=== PATIENT | male | born 1955 | race Native Hawaiian/Other Pacific Islander ===

== ENCOUNTER 2018-03-08 15:52 | Outpatient (CLI) | payer BC | END 2018-03-08 19:11 | disposition home or self-care (01) | LOC: RAD 15:52 | DX: M25.552 Pain in left hip (principal); M54.16 Radiculopathy, lumbar region ==

== ENCOUNTER 2018-10-05 11:58 | Outpatient (CLI) | payer BC | END 2018-10-05 22:47 | disposition home or self-care (01) | LOC: US 11:58 | DX: N50.819 Testicular pain, unspecified (principal) ==

== ENCOUNTER 2018-11-23 07:58 | Outpatient (CLI) | payer BC | END 2018-11-23 23:33 | disposition home or self-care (01) | LOC: RAD 07:58 | DX: R07.81 Pleurodynia (principal); M62.838 Other muscle spasm; M54.2 Cervicalgia; M25.512 Pain in left shoulder ==

== ENCOUNTER 2018-11-24 08:25 | Outpatient (CLI) | payer BC | END 2018-11-24 19:09 | disposition home or self-care (01) | LOC: RAD 08:25 | DX: M25.512 Pain in left shoulder (principal); M89.9 Disorder of bone, unspecified ==

== ENCOUNTER 2020-01-17 13:42 | Outpatient (CLI) | payer OTHER, BC | END 2020-01-17 19:23 | disposition home or self-care (01) | LOC: LAB 13:42 | DX: Z11.59 Encounter for screening for other viral diseases (principal); R53.83 Other fatigue; R43.2 Parageusia | CPT/HCPCS: 87635; G2023; U0003 ==

== ENCOUNTER 2020-03-21 08:32 | Outpatient (CLI) | payer OTHER, BC | END 2020-03-21 20:12 | disposition home or self-care (01) | LOC: LAB 08:32 | DX: R43.2 Parageusia (principal); R53.83 Other fatigue; Z11.59 Encounter for screening for other viral diseases | CPT/HCPCS: 87635; G2023; U0003 ==

== ENCOUNTER 2021-07-19 10:01 | Emergency (ER) | payer BC ==
[~2021-07-19] VITALS: Ht 185.4 cm; Wt 86.2 kg
[2021-07-19 10:19] LABS: PLATELET COUNT 197 K/uL (142-355)
[2021-07-19 10:31] LABS: PARTIAL THROMBOPLASTIN TIME 24.1 SECONDS (24.5-33.6)
[2021-07-19 11:55] VITALS: BP 100/54; TEMP 97.8
== END 2021-07-19 11:55 | disposition short-term general hospital (02) ==
LOC: ED 10:01
PROVIDERS: Hospitalist
DX: I48.20 Chronic atrial fibrillation, unspecified (principal); I48.92 Unspecified atrial flutter; I21.4 Non-ST elevation (NSTEMI) myocardial infarction; I10 Essential (primary) hypertension; Z11.52 Encounter for screening for COVID-19
CPT/HCPCS: 36415; 80053; 82550; 83880; 84484; 85027; 85610; 85730; 87635; 93005; 96360; 96375; 99284; J1815; J3490; U0003

== ENCOUNTER 2022-04-26 10:53 | Outpatient (CLI) | payer BC | END 2022-04-26 19:19 | disposition home or self-care (01) | LOC: CT 10:53 | PROVIDERS: ATTEND Internal Medicine | DX: G45.9 Transient cerebral ischemic attack, unspecified (principal) | CPT/HCPCS: 36415; 85379 ==

== ENCOUNTER 2022-06-04 08:33 | Outpatient (CLI) | payer BC | END 2022-06-04 20:32 | disposition home or self-care (01) | LOC: MRI 08:33 | PROVIDERS: ATTEND Internal Medicine | DX: G45.9 Transient cerebral ischemic attack, unspecified (principal) | CPT/HCPCS: 36415; 82565; 84520; A9576 ==

== ENCOUNTER 2022-06-10 08:19 | Outpatient (CLI) | payer BC | END 2022-06-10 19:02 | disposition home or self-care (01) | LOC: MRI 08:19 | PROVIDERS: ATTEND Internal Medicine | DX: G45.9 Transient cerebral ischemic attack, unspecified (principal) ==